=== PATIENT | female | born 1980 | race Hispanic/Latino ===

== ENCOUNTER 2019-01-03 20:09 | Emergency (ER) | payer MEDICAID ==
[2019-01-03] MEDS ORDERED: ONDANSETRON HCL 4 MG/2 ML VIAL ONE (20:48)
[2019-01-03] MEDS ORDERED: KETOROLAC TROMETHAMINE 30MG/ML ONE (20:48)
[2019-01-03] MEDS ORDERED: SODIUM CHLORIDE 0.9% 1000ML 1,000 ML IV ONE (20:48)
[2019-01-03 21:50] LABS: CREATININE 0.7 mg/dL (0.5-1.5); POTASSIUM 4.3 mmol/L (3.5-5.1)
[2019-01-03 21:54] LABS: ALBUMIN 2.5 g/dL (3.5-5.0); BILIRUBIN,DIRECT 0.1 mg/dL (0.0-0.3); BILIRUBIN,TOTAL 0.2 mg/dL (0.2-1.0); TOTAL PROTEIN, SERUM 7.6 g/dL (6.0-8.3)
[2019-01-03 22:26] LABS: BASOPHILS % (AUTO) 0.7 % (0.0-5.0); EOSINOPHILS % (AUTO) 1.2 % (0.0-8.0); HEMATOCRIT 23.8 % (36-48); LYMPHOCYTES % (AUTO) 20.3 % (21.0-51.0); MEAN CORPUSCULAR HEMOGLOBIN 19.4 pg (27.0-33.0); MEAN CORPUSCULAR HGB CONC 31.1 g/dL (32.0-36.0); MEAN CORPUSCULAR VOLUME 62.5 fL (79-99); MONOCYTES % (AUTO) 10.7 % (3.0-13.0); NEUTROPHILS % (AUTO) 67.1 % (40.0-77.0); NUCLEATED RED BLOOD CELLS 0.1 % (0.0-0.19); PLATELET COUNT (AUTO) 521 K/uL (130-400); RED BLOOD CELL COUNT(AUTO) 3.81 MIL/uL (4.00-5.50); RED CELL DISTRIBUTION WIDTH 18.1 % (11.0-15.5); WHITE BLOOD COUNT (AUTO) 9.8 K/uL (4.8-10.8)
== END 2019-01-03 22:55 | disposition home or self-care (01) ==
LOC: EDH 20:09
DX: A08.4 Viral intestinal infection, unspecified (principal); E86.0 Dehydration; F32.9 Major depressive disorder, single episode, unspecified; M19.90 Unspecified osteoarthritis, unspecified site; Z88.2 Allergy status to sulfonamides; Z88.1 Allergy status to other antibiotic agents; Z88.8 Allergy status to other drugs, medicaments and biological substances
CPT/HCPCS: 36415; 74176; 80048; 80076; 83690; 84702; 85025; 96361; 96374; 96375; 99284; J1885; J2405; J7030

== ENCOUNTER 2023-10-22 06:54 | Day surgery (SDC) | payer MEDICAID ==
[~2023-10-22] VITALS: Ht 157.5 cm; Wt 70.3 kg
[2023-10-22] VITALS (10 sets, daily range): BP systolic 99–136; BP diastolic 61–89; PULSE 86–103; RESP 12–20
[2023-10-22] MEDS ORDERED: QUET50TA24 PO (09:22)
[2023-10-22] MEDS ORDERED: HYDR50CA50 PO (09:22)
[2023-10-22] MEDS ORDERED: LORA2TAB80 PO (09:22)
[2023-10-22] MEDS ORDERED: DIPH1TAB24 PO (09:22)
[2023-10-22] MEDS ORDERED: DOXE25CA3 PO (09:22)
[2023-10-22] MEDS ORDERED: [UNRECOGNIZED DRUG - CODE] PO (09:22)
[2023-10-22] MEDS ORDERED: PRED10TA3 PO (09:22)
[2023-10-22] MEDS ORDERED: VENL-191 PO (09:22)
[2023-10-22] MEDS ORDERED: METO-408 PO (09:22)
[2023-10-22] MEDS ORDERED: TACR0.5C7 PO (09:22)
[2023-10-22] MEDS ORDERED: ZOLP5TAB8 PO (09:22)
[2023-10-22] MEDS ORDERED: SACU1TAB PO (09:22)
[2023-10-22] MEDS ORDERED: OMEP-459 PO (09:22)
[2023-10-22] MEDS ORDERED: PROPOFOL 10 MG/ML 20ML VIAL IV ONE (10:06)
== END 2023-10-22 11:25 | disposition home or self-care (01) ==
LOC: ENDO 06:54 → DAH 06:54 → ENDO 11:25
PROVIDERS: ATTEND Internal Medicine Gastroenterology
DX: R13.10 Dysphagia, unspecified (principal); K22.2 Esophageal obstruction; K74.60 Unspecified cirrhosis of liver; R10.84 Generalized abdominal pain; R11.2 Nausea with vomiting, unspecified; I11.0 Hypertensive heart disease with heart failure; I50.22 Chronic systolic (congestive) heart failure; F41.9 Anxiety disorder, unspecified; M19.90 Unspecified osteoarthritis, unspecified site; F31.9 Bipolar disorder, unspecified; Z98.84 Bariatric surgery status; Z98.0 Intestinal bypass and anastomosis status; Z90.49 Acquired absence of other specified parts of digestive tract; Z88.8 Allergy status to other drugs, medicaments and biological substances; Z88.1 Allergy status to other antibiotic agents; Z79.899 Other long term (current) drug therapy
CPT/HCPCS: 81025; 84703; 36415; 43239; 43248; J3490; A4620; A4215; A4223; A7002; A4222; A4221; A4663; J7030; A4606; J2704

== ENCOUNTER → 2024-03-21 | Outpatient (CLI) | payer MEDICAID ==
[~2024-03-21] VITALS: Ht 154.9 cm; Wt 76.2 kg
[~2024-03-21] MED LIST: APRE30TA5 PO; DOXE25CA3 PO; ERGO500093 PO; FENT1PAT60 TD; HYDR-4068 PO; HYDR50CA50 PO; LORA2TAB80 PO; METO-408 PO; MIRT-93 PO; OMEP-459 PO; PANT40TA54 PO; PRED10TA3 PO; SACU1TAB PO; TACR0.5C7 PO; ZOLP5TAB8 PO; ZOLPIDEM PO; [UNRECOGNIZED DRUG - CODE] PO
[2024-03-21 15:49] LABS: BASOPHILS # (AUTO) 0.06 K/uL (0.00-0.20); BASOPHILS % (AUTO) 0.6 % (0.0-5.0); EOSINOPHILS # (AUTO) 0.65 K/uL (0.00-0.70); EOSINOPHILS % (AUTO) 6.6 % (0.0-8.0); HEMATOCRIT 40.1 % (36-48); IMMATURE GRANULOCYTE ABSOLUTE 0.03 K/uL (0-1); LYMPHOCYTES # (AUTO) 2.7 K/uL (1.0-4.8); LYMPHOCYTES % (AUTO) 27.6 % (21.0-51.0); MEAN CORPUSCULAR HEMOGLOBIN 29.3 pg (27.0-33.0); MEAN CORPUSCULAR HGB CONC 32.4 g/dL (32.0-36.0); MEAN CORPUSCULAR VOLUME 90.5 fL (79-99); MONOCYTES # (AUTO) 0.5 K/uL (0.1-1.0); MONOCYTES % (AUTO) 5.2 % (3.0-13.0); NEUTROPHILS # (AUTO) 5.9 K/uL (1.8-7.7); NEUTROPHILS % (AUTO) 59.7 % (40.0-77.0); PLATELET COUNT (AUTO) 316 K/uL (130-400); RED BLOOD CELL COUNT(AUTO) 4.43 MIL/uL (4.00-5.50); RED CELL DISTRIBUTION WIDTH 13.9 % (11.0-15.5); WHITE BLOOD COUNT (AUTO) 9.8 K/uL (4.8-10.8)
[2024-03-21 16:05] LABS: ALBUMIN 3.7 g/dL (3.5-5.0); BILIRUBIN,TOTAL 0.3 mg/dL (0.2-1.0); CREATININE 0.9 mg/dL (0.5-1.0); TOTAL PROTEIN, SERUM 8.3 g/dL (6.0-8.3)
== END | disposition home or self-care (01) ==
LOC: LAB 15:16
PROVIDERS: ATTEND Internal Medicine Gastroenterology
DX: R10.13 Epigastric pain (principal); R11.2 Nausea with vomiting, unspecified
CPT/HCPCS: 36415; 80053; 82150; 83690; 85025

== ENCOUNTER 2024-03-23 06:55 | Day surgery (SDC) | payer MEDICAID ==
[2024-03-23] VITALS (11 sets, daily range): BP systolic 110–137; BP diastolic 65–89; PULSE 85–97; RESP 15–18
[~2024-03-23] VITALS: Ht 154.9 cm; Wt 76.2 kg
[~2024-03-23 06:55] MED LIST changes: -ERGO500093 PO; -OMEP-459 PO; -ZOLP5TAB8 PO
[2024-03-23] MEDS: 0.9%NACL 1000ML 1,000 ML IV ONE (09:30)
[2024-03-23] MEDS ORDERED: FENTANYL CITRATE PF 50 MCG/1 ML 2ML VIAL ONE (09:39)
[2024-03-23] MEDS ORDERED: PROPOFOL 10 MG/ML 20ML VIAL IV ONE (10:51)
== END 2024-03-23 11:55 | disposition home or self-care (01) ==
LOC: ENDO 06:55 → DAH 06:55 → ENDO 11:55
PROVIDERS: ATTEND Internal Medicine Gastroenterology
DX: R13.10 Dysphagia, unspecified (principal); K22.2 Esophageal obstruction; B37.81 Candidal esophagitis; R10.13 Epigastric pain; R11.2 Nausea with vomiting, unspecified; I50.22 Chronic systolic (congestive) heart failure; K76.9 Liver disease, unspecified; K59.04 Chronic idiopathic constipation; F41.9 Anxiety disorder, unspecified; M19.90 Unspecified osteoarthritis, unspecified site; F31.9 Bipolar disorder, unspecified; Z90.49 Acquired absence of other specified parts of digestive tract; Z98.891 History of uterine scar from previous surgery; Z98.890 Other specified postprocedural states; Z79.899 Other long term (current) drug therapy; Z98.84 Bariatric surgery status
CPT/HCPCS: 81025; 43239; 43248; J3010; J7030; J3490; A4620; A4215; A4223; A7002; A4221; A4663; A4606; J2704